=== PATIENT | female | born 1985 | race Caucasian/White ===

== ENCOUNTER 2016-09-15 14:59 | Emergency (ER) | payer MEDICAID ==
[~2016-09-15 14:59] MED LIST: PREN1CAP12 PO
[2016-09-15 15:19] VITALS: BP 101/67; PULSE 90
[2016-09-15 15:25] VITALS: PULSE 93
--- NOTE | 2016-09-15 15:28 | PD ---
HPI Chief Complaint Cramping Date Seen: Sep 15, 2016 Time Seen: 15:16 (Randal Arce MD R1) Travel History International Travel<30 Days: No Contact w/Intl Traveler<30Days: No Known Affected Area: No (Randal Arce MD R1) History of Present Illness HPI 31 y/o at 24/3 weeks presents for cramping. States she got in an argument with family this afternoon and was stressed out. Also developed palpitations. Denies any trauma. Denies vaginal bleeding, discharge, contractions. Endorses movement. No problems with this . Denies any other symptoms. Denies headache, changes in vision, edema. Denies chest pain, SOB, dysuria. Follows with Nuha Walton. Did have sexual intercourse this morning. Para: 6 : 8 Miscarriage: 1 (Randal Arce MD R1) History Past Medical History Medical History: Denies Significant Hx (Randal Arce MD) Obstetric History Obstetric History (Randal Arce MD) Past Surgical History Surgical History: No Previous Surgery (Randal Arce MD) Family History Family History: Negative (Randal Arce MD) Social History Alcohol Use: No Tobacco Use: Yes (6-10 cigs/day) Substance Abuse: No (Randal Arce MD R1) Allergies-Medications (Allergen,Severity, Reaction): Coded Allergies: No Known Allergies (Verified , 02/09/16) Home Meds Active Scripts W/O A W/ Fe Asparto G (Prenate Dha 18-0.6-0.4-300 mg)1 Cap Cap1 Tab PO DAILY #30 BOTTLE Ref 11 Prov:Aliza De 09/14/16 Review of Systems General / Constitutional: Weight Gain, No: Fever, Weight Loss, Chills Eyes: No: Blurred Vision, Visual changes HENT: No: Headaches, Vertigo Cardiovascular: Palpitations, No: Chest Pain or Discomfort, Tachycardia, Syncope Respiratory: No: Cough, Short of Breath Gastrointestinal: No: Nausea, Vomiting, Diarrhea, Abdominal Pain, Constipation Genitourinary: No: Urgency, Frequency, Dysuria, Discharge, Vaginal Bleeding Musculoskeletal: Cramping, No: Limited ROM, Weakness, Edema Skin: No Rash, No Itching Neurologic: No: Weakness, Dizziness Psychiatric: No: Anxiety, Depression Endocrine: No: Heat Intolerance, Cold Intolerance Hematologic/Lymphatic: No Easy Bruising, No Lymph Node Enlargement (Randal Arce MD R1) Physical Exam Narrative GENERAL: Well-nourished, well-developed patient. SKIN: Warm and dry. HEAD: Normocephalic and atraumatic. EYES: No scleral icterus. No injection or drainage. ENT: No nasal drainage noted. Mucous membranes pink. Airway patent. NECK: Supple, trachea midline. No JVD. CARDIOVASCULAR: Regular rate and rhythm without murmurs, gallops, or rubs. RESPIRATORY: Breath sounds equal bilaterally. No accessory muscle use. ABDOMEN/GI: Abdomen soft, non-tender, bowel sounds present, no rebound, no guarding Gravid to 24 weeks size Fundal Height: 24 GENITOURINARY: External Genitalia: intact and normal in appearance Cervix: closed Dilatation: 0 Effacement: 0 Station: -3 Membranes: intact Uterine Contractions: none FHT's: Category: 1 Baseline: 145 Reactive: yes Variability: moderate Decels: none EXTREMITIES: No cyanosis or edema. BACK: Nontender without obvious deformity. No CVA tenderness. NEUROLOGICAL: Awake and alert. Motor and sensory grossly within normal limits. Five out of 5 muscle strength in all muscle groups. Normal speech. (Randal Arce MD R1) Data Data Vital Signs Reviewed: Yes (Randal Arce MD R1) [facility] Medical Record Reviewed: Yes Interpretation(s) 31 y/o at 24/3 weeks presents for cramping. - Monitor heart tracing - Unable to perform fibronectin due to sexual intercourse this morning - Cervical check - Monitor vitals Narrative Course / MDM monitor reassuring. No contractions. Category 1 tracing Cervical check: Cervix closed, thick, high. Discharge in stable condition. Return to ED if worsening symptoms (Randal Arce MD R1) Attending Attestation Patient seen and evaluated with resident under direct supervision, agree with assessment and plan. (Madhav Villar MD) Diagnosis Diagnosis: Primary Impression: Qualified Code: Z3A.24 - 24 weeks gestation of Disposition: DISCHARGE HOME Condition: Stable Randal Arce MD R1 Sep 15, 2016 15:28 Madhav Villar MD Sep 15, 2016 17:16
[2016-09-15 15:30] VITALS: PULSE 91; RESP 18; TEMP 98.3
[2016-09-15 15:35] VITALS: PULSE 90
[2016-11-01] MEDS ORDERED: LACTATED RINGER'S 1000 ML INJ 1,000 ML IV SCH (10:14)
== END 2016-09-15 16:18 | disposition home or self-care (01) ==
LOC: HOBED 14:59
DX: O26.92 Pregnancy related conditions, unspecified, second trimester (principal); Z3A.24 24 weeks gestation of pregnancy; Z72.0 Tobacco use
CPT/HCPCS: 99283

== ENCOUNTER 2016-11-01 09:59 | Emergency (ER) | payer MEDICAID ==
[2016-11-01 10:25] VITALS: PULSE 95
[2016-11-01] MEDS ORDERED: LACTATED RINGER'S 1000 ML INJ 1,000 ML IV SCH (10:25)
[2016-11-01 10:30] VITALS: TEMP 98.4
[2016-11-01] MEDS ORDERED: ONDANSETRON HCL 4 MG/2 ML VIAL IV ONE (10:30)
--- NOTE | 2016-11-01 10:45 | PD ---
HPI Chief Complaint Nausea, vomiting, stress Date Seen: Nov 01, 2016 Travel History International Travel<30 Days: No Contact w/Intl Traveler<30Days: No Known Affected Area: No History of Present Illness HPI Patient is a 31-year-old 016 at and 1/7 weeks today who presents with nausea, vomiting, and increased stress for 1 week. She states she is only been able to keep down crackers intermittently as well as water over the last week. She denies any fevers or chills but does report sporadic cramping of the lower abdomen yesterday. Her last known weight was 147 pounds approximately one month ago. She is stressed regarding custody dispute of her 2-year-old daughter, which has been a chronic issue. However, she states the anxiety symptoms have acutely worsened in the last day and she workup with significant anxiety, though she cannot symptoms. [facility]. She states that all her labs were normal but she has not had her glucose test. She denies leakage of fluid, vaginal bleeding, contractions, and feels baby moving actively. She denies PORRAS/N/V/D/fever/sick contacts/SOB/calf pain/dizziness/seeing spots. Allergies-Medications (Allergen,Severity, Reaction): Coded Allergies: No Known Allergies (Verified , 02/09/16) Home Meds Active Scripts W/O A W/ Fe Asparto G (Prenate Dha 18-0.6-0.4-300 mg)1 Cap Cap1 Tab PO DAILY #30 BOTTLE Ref 11 Prov:Aliza De 09/14/16 Physical Exam Narrative Weight today = 141 lb GENERAL: Well-nourished, well-developed female in NAD. SKIN: Warm and dry. No rashes. HEAD: Normocephalic and atraumatic. EYES: No scleral icterus. No injection or drainage. Pupils 3mm in size, normal. ENT: No nasal drainage noted. Mucous membranes pink. Airway patent. NECK: Supple, trachea midline. No JVD. CARDIOVASCULAR: Regular rate and rhythm without murmurs, gallops, or rubs. RESPIRATORY: Breath sounds equal bilaterally. No accessory muscle use. ABDOMEN/GI: Abdomen soft, non-tender, bowel sounds present, no rebound, no guarding. Fundal high above umbilicus. GENITOURINARY: External Genitalia: intact and normal in appearance Cervix: Closed, thick, high Dilatation: Closed Effacement 50% Station: High Presentation: Vertex, ballotable Membranes: Intact Uterine Contractions: None Bedside ultrasound: Vertex presentation, BPD 7.97 cm consistent with 32 week gestation, EMILEE 10.22. Grade 2 placenta audrey-fundal, BPP 10/10, FHR 144. FHT's: Category: 1 Baseline: 140 Reactive: y, max HR 170 over a 3 min accel Variability:mod Decels: absent EXTREMITIES: No cyanosis or edema. 2+ pulses in UE and LE bilaterally. BACK: Nontender without obvious deformity. No CVA tenderness. NEUROLOGICAL: Awake and alert. Anxious. Motor and sensory grossly within normal limits. Five out of 5 muscle strength in all muscle groups. Normal speech. Data Data Vital Signs Reviewed: Yes Orders Vital Signs (Adult) .ON ADMISSION (11/01/16 10:25) ^ Labor Status (11/01/16 10:25) Urinalysis - C+S If Indicated (11/01/16 10:25) ^ Hydration (11/01/16 10:25) Cbc No Diff, Includes Plts (11/01/16 10:25) Comprehensive Metabolic Panel (11/01/16 10:25) Lactated Ringer's 1000 Ml Inj (Lr 1000 M (11/01/16 10:25) Ondansetron Inj (Zofran Inj) (11/01/16 10:30) Ob/Psych Drug Screen, Urine (11/01/16 10:25) MDM Medical Record Reviewed: Yes Plan 31-year-old at 37 and 1/7 weeks EDC 11/21/16, who presents to the ED with nausea and vomiting and anxiety. Nausea and vomiting of /anxiety Category 1 strip No contractions on monitor Bedside ultrasound reassuring Cervical exam: closed, posterior, high, vertex presentation Weight loss 6 lb in one month - recommend PRN anti-emetic Differential diagnoses includes infection, dehydration, hyperemesis gravidarum Last known weight 147 pounds, we will recheck weight today CBC, CMP, UA, UDS ordered -positive for marijuana, is within normal limits. Some rest of UDS still pending. We'll breastfeeding peer counselor and marijuana use. She will be discharged home with Rx for Zofran to be used as needed. Follow up with [facility]. fluid bolus of LR, encourage PO hydration Hydration PO Case management consulted Seen and discussed with Dr. Carranza Diagnosis Diagnosis: Primary Impression: 31 weeks gestation of Additional Impression: Nausea and vomiting of , antepartum Disposition: 01 DISCHARGE HOME Condition: Stable Scripts Ondansetron (Zofran)4 Mg Tab4 Mg PO Q6HR PRN (NAUSEA OR VOMITING) #7 TAB Ref 0 Prov:Lela Bo MD R1 11/01/16 Lela Bo MD R1 Nov 01, 2016 10:45
[2016-11-01 11:14] LABS: BACTERIA, URINE OCC /hpf; BLOOD, URINE NEG (NEG); COMMENT (UR) CULT NOT INDICATED; CULTURE IF INDICATED CULT NOT INDICATED; GLUCOSE,URINE NEG (NEG); KETONE, URINE 150 mg/dL (NEG); MUCUS URINE FEW /lpf (OCC); NITRITE,URINE NEG (NEG); SQUAMOUS EPITHELIAL CELL URINE <1 /hpf (0-5); TRANSITIONAL EPI CELLS, URINE <1 /hpf; URINE COLOR YELLOW (YELLW/STRAW)
[2016-11-01 11:29] LABS: AMPHETAMINE, URINE NEG (NEG); BARBITURATES, URINE NEG (NEG); COCAINE, URINE NEG (NEG)
[2016-11-01 11:29] LABS: HEMATOCRIT 31.6 % (35.0-46.0); MEAN CELL VOLUME 85.7 FL (80.0-100.0); MEAN CORPUSCULAR HEMOGLOBIN 29.5 PG (27.0-34.0); MEAN CORPUSCULAR HGB CONC 34.4 % (32.0-36.0); PLATELET COUNT 207 TH/MM3 (150-450); RED BLOOD COUNT 3.69 MIL/MM3 (4.00-5.30); RED CELL DISTRIBUTION WIDTH 12.9 % (11.6-17.2); REVIEW FLAG FINAL; WHITE BLOOD COUNT 10.8 TH/MM3 (4.0-11.0)
[2016-11-01 11:56] LABS: ANION GAP 9 MEQ/L (5-15); AST (GOT) 12 U/L (15-37); BICARBONATE 24.4 MEQ/L (21.0-32.0); BLOOD UREA NITROGEN 5 MG/DL (7-18); CHLORIDE 108 MEQ/L (98-107); GLOMERULAR FILTRATION RATE 123 ML/MIN (>89); POTASSIUM 3.7 MEQ/L (3.5-5.1); SODIUM (NA) 141 MEQ/L (136-145)
[2016-11-01 11:59] LABS: ALKALINE PHOSPHATASE 73 U/L (45-117); ALT (GPT) 10 U/L (10-53); TOTAL BILIRUBIN ADULT 0.3 MG/DL (0.2-1.0)
[2016-11-01] MEDS ORDERED: ZOFR4TAB PO (12:06)
[2016-11-06 08:04] LABS: BATH SALTS (MDPV) UR NEG (NEG); ECSTASY (MDMA) UR NEG (NEG); HEROIN (6-ACETYLMORPHINE) UR NEG (NEG); K2 SPICE UR NEG (NEG); OBMETHADONE UR NEG (NEG); OXYCODONE (PERCODAN) NEG (NEG); PHENCYCLIDINE URINE NEG (NEG)
== END 2016-11-01 12:14 | disposition home or self-care (01) ==
LOC: HOBED 09:59
DX: O26.893 Other specified pregnancy related conditions, third trimester (principal); O21.9 Vomiting of pregnancy, unspecified; Z3A.31 31 weeks gestation of pregnancy
CPT/HCPCS: 76815; 80053; 80307; 81001; 85027; 96374; 99284; G0481; J2405; J7120

== ENCOUNTER 2016-12-18 15:07 | Inpatient (IN) | payer MEDICAID ==
[2016-12-18] VITALS (46 sets, daily range): BP systolic 89–126; BP diastolic 44–79; PULSE 68–110; RESP 17–20; TEMP 97.8–98.4; O2SAT 100
[2016-12-18] MEDS ORDERED: LACTATED RINGER'S 1000 ML INJ 1,000 ML IV PRN (15:39)
[2016-12-18] MEDS ORDERED: SODIUM CHLORID 0.9% 500 ML INJ 500 ML IV PRN (15:45)
[2016-12-18] MEDS ORDERED: MINERAL OIL 10 ML VIAL TOPICAL PRN (15:45)
[2016-12-18] MEDS ORDERED: CITRIC ACID-SODIUM CITRATE LIQ 30 ML UDC PO SCH (15:45)
[2016-12-18] MEDS ORDERED: LIDOCAINE HCL 1% 50 ML VIAL INFIL PRN (15:45)
[2016-12-18] MEDS ORDERED: OXYTOCIN 30 UNITS-500ML PREMIX 500 ML IV ONE (15:45)
[2016-12-18] MEDS ORDERED: LIDOCAINE HCL 1% 50 ML VIAL I-DERMAL PRN (15:45)
--- NOTE | 2016-12-18 15:53 | PD ---
HPI Chief Complaint contractions Date Seen: Dec 18, 2016 Travel History International Travel<30 Days: No Contact w/Intl Traveler<30Days: No History of Present Illness HPI Ms. Macdonald is a 31 yo (most recently in 12/2015 preceded by CS for breech presentation in 2013; prior deliveries were vaginal) patient of [facility] at 37 6/7 weeks who presents with complaint of contractions. Patient reports that contractions began becoming regular, q3-4min, and painful for the past hour. patient denies vaginal bleeding or loss of fluid. Patient reports normal movement. Patient reports mild, diffuse headache today in association with mild upper abdominal pain. Patient does not report vision changes, shortness of breath, chest pain, leg swelling, vaginal discharge, or other symptoms at this time. Patient reports smoking 1/2 PPD during . Patient states she is GBS + but denies other complications. Per review of EMR, labs unremarkable. GBS+ confirmed. Cannabinoids+ on multiple prior UDS. Para: 6 : 8 History Past Medical History Medical History: Denies Significant Hx Obstetric History Obstetric History G8G6 Vaginal delivery in 12/2015 CS in 2013 Prior 4 deliveries vaginal Past Surgical History Narrative Surgical CS x1 in 2013 Laparoscopy as adolescent Family History Family History: Negative Social History Alcohol Use: No Tobacco Use: Yes Substance Abuse: No Allergies-Medications (Allergen,Severity, Reaction): Coded Allergies: No Known Allergies (Verified , 12/14/16) Home Meds Active Scripts W/O A W/ Fe Asparto G (Prenate Dha 18-0.6-0.4-300 mg)1 Cap Cap1 Tab PO DAILY #30 BOTTLE Ref 11 Prov:Aliza De 09/14/16 Review of Systems General / Constitutional: No: Fever, Chills HENT: Headaches (mild, bilateral) Cardiovascular: No: Chest Pain or Discomfort Respiratory: No: Short of Breath Gastrointestinal: Abdominal Pain (w/ contractions), No: Nausea, Vomiting Genitourinary: No: Urgency, Dysuria Physical Exam BP 93/71 Narrative GENERAL: Well-nourished, well-developed patient. SKIN: Warm and dry. HEAD: Normocephalic and atraumatic. EYES: No scleral icterus. No injection or drainage. ENT: No nasal drainage noted. Mucous membranes pink. Airway patent. NECK: Supple, trachea midline. No JVD. CARDIOVASCULAR: Regular rate and rhythm without murmurs. Normal perfusion RESPIRATORY: CTAB, normal rate ABDOMEN/GI: Abdomen soft, non-tender, bowel sounds present, no rebound, no guarding Gravid EXTREMITIES: No cyanosis or edema. NEUROLOGICAL: Awake and alert. Motor and sensory function grossly within normal limits. GENITOURINARY: External Genitalia: intact and normal in appearance Cervix: Dilatation: 5cm Effacement: 70% Station: -2 Presentation: V Membranes: Intact Uterine Contractions: q3-6 FHT's: Category: 1 Baseline: 125 Reactive: Y Variability: Mod Decels: None Data Data Orders Ob (2e) Additional Admit Info (12/18/16 15:29) Admit To Inpatient (12/18/16 ) Vital Signs (Adult) .Per protocol (12/18/16 15:39) Heart (12/18/16 15:39) Amnioinfusion (12/18/16 15:39) Urinary Catheter Management .ONCE (12/18/16 15:39) Diet Npo (12/18/16 Dinner) Lactated Ringer's 1000 Ml Inj (Lr 1000 M (12/18/16 15:39) Lactated Ringer's 1000 Ml Inj (Lr 1000 M (12/18/16 15:39) Sodium Chlorid 0.9% 500 Ml Inj (Ns 500 M (12/18/16 15:45) Sodium Chlor 0.9% 1000 Ml Inj (Ns 1000 M (12/18/16 15:59) Lidocaine 1% Inj (50 Ml) (Xylocaine 1% I (12/18/16 15:45) Citric Acid-Sodium Citrate Liq (Bicitra (12/18/16 15:45) Fentanyl Inj (Fentanyl Inj) (12/18/16 15:45) Fentanyl Inj (Fentanyl Inj) (12/18/16 15:45) Penicillin G Potassium Inj (Pfizerpen-G (12/18/16 15:45) Penicillin G Potassium Inj (Pfizerpen-G (12/18/16 19:45) Complete Blood Count With Diff (12/18/16 15:39) Hold Clot (12/18/16 15:39) Abo/Rh Blood Type (12/18/16 15:39) Urinalysis - C+S If Indicated (12/18/16 15:39) Type And Screen (12/18/16 15:39) Resp Oxygen Non Rebreathe Mask (12/18/16 ) ^ Epidural / Intrathecal Infus (12/18/16 15:39) Oxytocin 30 Units-500ml Premix (Pitocin (12/18/16 15:45) Lidocaine 1% Inj (50 Ml) (Xylocaine 1% I (12/18/16 15:45) Light Mineral Oil (Muri-Lube Oil) (12/18/16 15:45) Inpatient Certification (12/18/16 ) Specimen To Be Collected PRN (12/18/16 15:39) MDM Medical Record Reviewed: Yes Narrative Course / MDM 31 yo at 37 6/7 weeks who presents with complaint of contractions -Cervix /-2 -Cat 1 rhythm -Contractions q3-6min -prior CS in 2013, most recently in 2016; requests -GBS+ -Marijuana use per EMR Plan: -Will admit for labor -Continue EFM -Will start IVF -Will obtain CBC, UA, blood typing -Will start PCN for GBS + -Epidural if desired Omar Mejias MD R2 Dec 18, 2016 15:53
[2016-12-18] MEDS ORDERED: SODIUM CHLOR 0.9% 1000 ML INJ 1,000 ML IV PRN (15:59)
[2016-12-18] MEDS ORDERED: LACTATED RINGER'S 1000 ML INJ 1,000 ML IV SCH (16:00)
[2016-12-18] MEDS ORDERED: MEASLES, MUMPS, RUBELLA VACCINE 0.5 ML VIAL SQ ONE (16:00)
[2016-12-18] MEDS ORDERED: DIPHTH/TETANUS/ACEL PERTUSSIS (BOOSTER) 0.5 ML VIAL/PFS IM ONE (16:00)
[2016-12-18] MEDS ORDERED: PENICILLIN G POTASSIUM INJ 5,000,000 UNITS in SODIUM CHLORIDE 0.9% INJ 100 ML IV ONE (16:00)
--- NOTE | 2016-12-18 16:04 | HHI.HP ---
History & Physical H&P Leisa Burnette Unit Number: [id number] Date of : 1985 Patient Status: Admitted Inpatient Attending Doctor: Nikos Harding II, MD HPI HPI Chief Complaint contractions Date Seen: Dec 18, 2016 Travel History International Travel<30 Days: No Contact w/Intl Traveler<30Days: No History of Present Illness HPI Ms. Macdonald is a 31 yo (most recently in 12/2015 preceded by CS for breech presentation in 2013; prior deliveries were vaginal) patient of [facility] at 37 6/7 weeks who presents with complaint of contractions. Patient reports that contractions began becoming regular, q3-4min, and painful for the past hour. patient denies vaginal bleeding or loss of fluid. Patient reports normal movement. Patient reports mild, diffuse headache today. Patient does not report vision changes, shortness of breath, chest pain, leg swelling, vaginal discharge, or other symptoms at this time. Patient reports smoking 1/2 PPD during . Patient states she is GBS + but denies other complications. Para: 6 : 8 History (Limited) History Past Medical History Medical History: Denies Significant Hx Obstetric History Obstetric History G8G6 Vaginal delivery in 12/2015 CS in 2013 Prior 4 deliveries vaginal Past Surgical History Narrative Surgical CS x1 in 2013 Laparoscopy as adolescent Family History Family History: Negative Social History Alcohol Use: No Tobacco Use: Yes Substance Abuse: No Allergies-Medications Allergies-Medications (Allergen,Severity, Reaction): Coded Allergies: No Known Allergies (Verified , 12/14/16) Home Meds Active Scripts W/O A W/ Fe Asparto G (Prenate Dha 18-0.6-0.4-300 mg)1 Cap Cap1 Tab PO DAILY #30 BOTTLE Ref 11 Prov:Aliza De 09/14/16 ROS Review of Systems General / Constitutional: No: Fever, Chills HENT: Headaches (mild, bilateral) Cardiovascular: No: Chest Pain or Discomfort Respiratory: No: Short of Breath Gastrointestinal: Abdominal Pain (w/ contractions), No: Nausea, Vomiting Genitourinary: No: Urgency, Dysuria Physical Exam Physical Exam BP 93/71 Narrative GENERAL: Well-nourished, well-developed patient. SKIN: Warm and dry. HEAD: Normocephalic and atraumatic. EYES: No scleral icterus. No injection or drainage. ENT: No nasal drainage noted. Mucous membranes pink. Airway patent. NECK: Supple, trachea midline. No JVD. CARDIOVASCULAR: Regular rate and rhythm without murmurs. Normal perfusion RESPIRATORY: CTAB, normal rate ABDOMEN/GI: Abdomen soft, non-tender, bowel sounds present, no rebound, no guarding Gravid EXTREMITIES: No cyanosis or edema. NEUROLOGICAL: Awake and alert. Motor and sensory function grossly within normal limits. GENITOURINARY: External Genitalia: intact and normal in appearance Cervix: Dilatation: 5cm Effacement: 70% Station: -2 Presentation: V Membranes: Intact Uterine Contractions: q3-6 FHT's: Category: 1 Baseline: 125 Reactive: Y Variability: Mod Decels: None Data Data Data Orders Ob (2e) Additional Admit Info (12/18/16 15:29) Admit To Inpatient (12/18/16 ) Vital Signs (Adult) .Per protocol (12/18/16 15:39) Heart (12/18/16 15:39) Amnioinfusion (12/18/16 15:39) Urinary Catheter Management .ONCE (12/18/16 15:39) Diet Npo (12/18/16 Dinner) Lactated Ringer's 1000 Ml Inj (Lr 1000 M (12/18/16 15:39) Lactated Ringer's 1000 Ml Inj (Lr 1000 M (12/18/16 15:39) Sodium Chlorid 0.9% 500 Ml Inj (Ns 500 M (12/18/16 15:45) Sodium Chlor 0.9% 1000 Ml Inj (Ns 1000 M (12/18/16 15:59) Lidocaine 1% Inj (50 Ml) (Xylocaine 1% I (12/18/16 15:45) Citric Acid-Sodium Citrate Liq (Bicitra (12/18/16 15:45) Fentanyl Inj (Fentanyl Inj) (12/18/16 15:45) Fentanyl Inj (Fentanyl Inj) (12/18/16 15:45) Penicillin G Potassium Inj (Pfizerpen-G (12/18/16 15:45) Penicillin G Potassium Inj (Pfizerpen-G (12/18/16 19:45) Complete Blood Count With Diff (12/18/16 15:39) Hold Clot (12/18/16 15:39) Abo/Rh Blood Type (12/18/16 15:39) Urinalysis - C+S If Indicated (12/18/16 15:39) Type And Screen (12/18/16 15:39) Resp Oxygen Non Rebreathe Mask (12/18/16 ) ^ Epidural / Intrathecal Infus (12/18/16 15:39) Oxytocin 30 Units-500ml Premix (Pitocin (12/18/16 15:45) Lidocaine 1% Inj (50 Ml) (Xylocaine 1% I (12/18/16 15:45) Light Mineral Oil (Muri-Lube Oil) (12/18/16 15:45) Inpatient Certification (12/18/16 ) Specimen To Be Collected PRN (12/18/16 15:39) MDM MDM Imp-- Labor in pt Plan - allow , pt understands risks and benefits of Nikos Campos MD, II, MD Dec 18, 2016 16:04
[2016-12-18] MEDS ORDERED: fentaNYL 2MCG-BUPIV 0.125% INJ 100 ML ONE (16:05)
[2016-12-18 16:19] LABS: AUTOMATED NEUTROPHIL # 18.4 TH/MM3 (1.8-7.7); BASOPHIL # 0.1 TH/MM3 (0-0.2); BASOPHIL % 0.3 % (0.0-2.0); EOSINOPHIL % 0.1 % (0.0-4.0); HEMATOCRIT 32.5 % (35.0-46.0); HEMO FLAGS DIFF FINAL; LYMPH % 9.1 % (9.0-44.0); LYMPHOCYTE # 1.9 TH/MM3 (1.0-4.8); MEAN CORPUSCULAR HEMOGLOBIN 26.9 PG (27.0-34.0); MEAN CORPUSCULAR HGB CONC 32.4 % (32.0-36.0); MONO % 4.5 % (0.0-8.0); PLATELET COUNT 213 TH/MM3 (150-450); RED BLOOD COUNT 3.91 MIL/MM3 (4.00-5.30); RED CELL DISTRIBUTION WIDTH 13.2 % (11.6-17.2); WHITE BLOOD COUNT 21.3 TH/MM3 (4.0-11.0)
--- NOTE | 2016-12-18 16:20 | HHI.HP ---
History & Physical H&P HPI HPI Chief Complaint contractions Date Seen: Dec 18, 2016 Travel History International Travel<30 Days: No Contact w/Intl Traveler<30Days: No History of Present Illness HPI Ms. Macdonald is a 31 yo (most recently in 12/2015 preceded by CS for breech presentation in 2013; prior deliveries were vaginal) patient of [facility] at 37 6/7 weeks who presents with complaint of contractions. Patient reports that contractions began becoming regular, q3-4min, and painful for the past hour. patient denies vaginal bleeding or loss of fluid. Patient reports normal movement. Patient reports mild, diffuse headache today in association with mild upper abdominal pain. Patient does not report vision changes, shortness of breath, chest pain, leg swelling, vaginal discharge, or other symptoms at this time. Patient reports smoking 1/2 PPD during . Patient states she is GBS + but denies other complications. Per review of EMR, labs unremarkable. GBS+ confirmed. Cannabinoids+ on multiple prior UDS. Para: 6 : 8 History (Limited) History Past Medical History Medical History: Denies Significant Hx Obstetric History Obstetric History G8G6 Vaginal delivery in 12/2015 CS in 2013 Prior 4 deliveries vaginal Past Surgical History Narrative Surgical CS x1 in 2013 Laparoscopy as adolescent Family History Family History: Negative Social History Alcohol Use: No Tobacco Use: Yes Substance Abuse: No Allergies-Medications Allergies-Medications (Allergen,Severity, Reaction): Coded Allergies: No Known Allergies (Verified , 12/14/16) Home Meds Active Scripts W/O A W/ Fe Asparto G (Prenate Dha 18-0.6-0.4-300 mg)1 Cap Cap1 Tab PO DAILY #30 BOTTLE Ref 11 Prov:Aliza De 09/14/16 ROS Review of Systems General / Constitutional: No: Fever, Chills HENT: Headaches (mild, bilateral) Cardiovascular: No: Chest Pain or Discomfort Respiratory: No: Short of Breath Gastrointestinal: Abdominal Pain (w/ contractions), No: Nausea, Vomiting Genitourinary: No: Urgency, Dysuria Physical Exam Physical Exam BP 93/71 Narrative GENERAL: Well-nourished, well-developed patient. SKIN: Warm and dry. HEAD: Normocephalic and atraumatic. EYES: No scleral icterus. No injection or drainage. ENT: No nasal drainage noted. Mucous membranes pink. Airway patent. NECK: Supple, trachea midline. No JVD. CARDIOVASCULAR: Regular rate and rhythm without murmurs. Normal perfusion RESPIRATORY: CTAB, normal rate ABDOMEN/GI: Abdomen soft, non-tender, bowel sounds present, no rebound, no guarding Gravid EXTREMITIES: No cyanosis or edema. NEUROLOGICAL: Awake and alert. Motor and sensory function grossly within normal limits. GENITOURINARY: External Genitalia: intact and normal in appearance Cervix: Dilatation: 5cm Effacement: 70% Station: -2 Presentation: V Membranes: Intact Uterine Contractions: q3-6 FHT's: Category: 1 Baseline: 125 Reactive: Y Variability: Mod Decels: None Data Data Data Orders Ob (2e) Additional Admit Info (12/18/16 15:29) Admit To Inpatient (12/18/16 ) Vital Signs (Adult) .Per protocol (12/18/16 15:39) Heart (12/18/16 15:39) Amnioinfusion (12/18/16 15:39) Urinary Catheter Management .ONCE (12/18/16 15:39) Diet Npo (12/18/16 Dinner) Lactated Ringer's 1000 Ml Inj (Lr 1000 M (12/18/16 15:39) Lactated Ringer's 1000 Ml Inj (Lr 1000 M (12/18/16 15:39) Sodium Chlorid 0.9% 500 Ml Inj (Ns 500 M (12/18/16 15:45) Sodium Chlor 0.9% 1000 Ml Inj (Ns 1000 M (12/18/16 15:59) Lidocaine 1% Inj (50 Ml) (Xylocaine 1% I (12/18/16 15:45) Citric Acid-Sodium Citrate Liq (Bicitra (12/18/16 15:45) Fentanyl Inj (Fentanyl Inj) (12/18/16 15:45) Fentanyl Inj (Fentanyl Inj) (12/18/16 15:45) Penicillin G Potassium Inj (Pfizerpen-G (12/18/16 15:45) Penicillin G Potassium Inj (Pfizerpen-G (12/18/16 19:45) Complete Blood Count With Diff (12/18/16 15:39) Hold Clot (12/18/16 15:39) Abo/Rh Blood Type (12/18/16 15:39) Urinalysis - C+S If Indicated (12/18/16 15:39) Type And Screen (12/18/16 15:39) Resp Oxygen Non Rebreathe Mask (12/18/16 ) ^ Epidural / Intrathecal Infus (12/18/16 15:39) Oxytocin 30 Units-500ml Premix (Pitocin (12/18/16 15:45) Lidocaine 1% Inj (50 Ml) (Xylocaine 1% I (12/18/16 15:45) Light Mineral Oil (Muri-Lube Oil) (12/18/16 15:45) Inpatient Certification (12/18/16 ) Specimen To Be Collected PRN (12/18/16 15:39) MDM MDM Medical Record Reviewed: Yes Narrative Course / MDM 31 yo at 37 6/7 weeks who presents with complaint of contractions -Cervix 5/70/-2 -Cat 1 rhythm -Contractions q3-6min -prior CS in 2013, most recently in 2016; requests -GBS+ -Marijuana use per EMR Plan: -Will admit for labor -Continue EFM -Will start IVF -Will obtain CBC, UA, blood typing -Will start PCN for GBS + -Epidural if desired Omar Mejias MD R2 Dec 18, 2016 16:20
[2016-12-18 16:22] LABS: BLOOD, URINE NEG (NEG); COMMENT (UR) CULT NOT INDICATED; CULTURE IF INDICATED CULT NOT INDICATED; GLUCOSE,URINE NEG (NEG); KETONE, URINE 150 mg/dL (NEG); MUCUS URINE FEW /lpf (OCC); NITRITE,URINE NEG (NEG); SQUAMOUS EPITHELIAL CELL URINE 1 /hpf (0-5); URINE COLOR YELLOW (YELLW/STRAW)
[2016-12-18 16:27] LABS: AMPHETAMINE, URINE NEG (NEG); BARBITURATES, URINE NEG (NEG); COCAINE, URINE NEG (NEG)
[2016-12-18] MEDS ORDERED: ePHEDrine/NS 25 MG/5 ML SYR ONE (17:01)
--- NOTE | 2016-12-18 17:16 | PD.LABORPN ---
Subjective Subjective OB note SROM while palpating fundus , fluid clear and copious , cx 6/70/-1/vtx , FHR reactive , CTXs seen , epidural just placed and 1 st dose of IV PCN for GBS + given Objective Vital Signs Vital Signs Date Time Temp Pulse Resp B/P Pulse Ox O2 Delivery O2 Flow Rate FiO2 12/18/16 16:50 100 115/57 12/18/16 16:47 103 102/63 12/18/16 16:46 96 103/79 12/18/16 16:45 110 12/18/16 16:45 103 114/73 12/18/16 16:45 20 12/18/16 16:44 103 109/78 12/18/16 16:00 94 115/74 Objective Pelvic Exam: Cervix: [-] Dilatation: [6-] Effacement: [70-] Station: [-1] Presentation: [vtx-] Membranes: ruptured] Uterine Contractions: [reg-] FHT's: Category: [-1] Baseline: [-144] Reactive: [-yes] Variability: [mod-] Decels: [none-] Nikos Harding II, MD Dec 18, 2016 17:16
[2016-12-18] MEDS ORDERED: ONDANSETRON HCL 4 MG/2 ML VIAL IV PUSH PRN ×2 (18:15→18:30)
--- NOTE | 2016-12-18 19:15 | PD.LABORPN ---
Subjective Subjective Pt doing well. Feels like pushing Objective Vital Signs Vital Signs Date Time Temp Pulse Resp B/P Pulse Ox O2 Delivery O2 Flow Rate FiO2 12/18/16 19:00 17 12/18/16 18:55 88 17 18:50 85 17 18:45 88 17 18:45 87 114/66 17 18:30 17 17 18:25 84 17 18:20 83 17 18:15 18 12/18/16 18:15 82 97/64 17 18:15 89 12/18/16 18:10 90 12/18/16 18:05 96 12/18/16 18:00 86 12/18/16 18:00 97 111/68 12/18/16 17:55 97 12/18/16 17:45 82 12/18/16 17:45 92 110/58 17 17:40 97 12/18/16 17:35 99 17 17:30 78 12/18/16 17:30 105 110/62 17 17:25 103 108/59 17 17:25 79 17 17:24 17 12/18/16 17:22 97.8 12/18/16 17:20 82 12/18/16 17:20 95 107/73 17 17:15 72 12/18/16 17:15 100 107/63 17 17:11 88 103/57 17 17:10 100 99/44 17 17:10 94 17 17:05 91 17 17:05 101 109/48 17 17:01 91 109/54 17 17:00 17 17 17:00 99 89/67 17 17:00 104 17 16:55 96 107/54 17 16:55 76 17 16:50 100 115/57 17 16:47 103 102/63 1717 16:46 96 103/79 1717 16:45 110 17 16:45 103 114/73 12/18/16 16:45 20 12/18/16 16:44 103 109/78 12/18/16 16:00 94 115/74 Objective Pelvic Exam: Cervix: Midposition Dilatation: 8cm Effacement: 90% Station: +1 Presentation: Vertex Membranes: ruptured Uterine Contractions: Q3 min FHT's: Category: II Baseline: 120 Reactive: Up to 150 Variability: Moderate Decels: Variable Assessment/Plan Assessment and Plan 31 yo at 37 6/7 weeks in active labor -Cervix 8/+1 -Cat II rhythm, variable decels -Contractions q3min -prior CS in 2014, most recently in 2016; requests -GBS+ -Marijuana use per EMR Plan: -Continue routine antepartum care -Continue EFM -Continue PCN -Expect vaginal delivery Lexii Oh MD R1 Dec 18, 2016 19:15
[2016-12-18] MEDS ORDERED: NO SYSTEM NARCOTICS PRN (20:00)
[2016-12-18] MEDS ORDERED: PENICILLIN G POTASSIUM INJ 2,500,000 UNITS in SODIUM CHLORIDE 0.9% INJ 100 ML IV SCH (20:00)
[2016-12-18] MEDS ORDERED: fentaNYL 2MCG-BUPIV 0.125% 100 ML EPIDURAL SCH (20:00)
[2016-12-18] MEDS ORDERED: DO NOT ADMINISTER ANTICOAGULANTS PRN (20:00)
--- NOTE | 2016-12-18 20:12 | PD.LABORPN ---
Subjective Subjective OB attending note OB attending supervising vaginal after delivery of this multiparous patient with vaginal delivery over intact perineum of a 3285 g female 9 and 9, cord blood obtained placenta delivered spontaneously and on inspection of the placenta appeared may be a 6 cm chunk cotyledon was missing and therefore I scrubbed into the case and digitally palpated the internal uterine surface is best that I could cannot feel retained products or retained placental mass, uterus is very firm as the Pitocin had been started immediately after delivery of the baby. There are no lacerations bleeding minimal at the end of the delivery which was done by the family medicine machine learning intern who did a very good job. Mother and baby doing well Objective Vital Signs Vital Signs Date Time Temp Pulse Resp B/P Pulse Ox O2 Delivery O2 Flow Rate FiO2 12/18/16 20:02 88 109/60 12/18/16 20:02 18 12/18/16 20:01 98.4 84 116/66 12/18/16 19:25 87 12/18/16 19:15 103/55 12/18/16 19:11 98.3 12/18/16 19:11 18 12/18/16 19:05 87 100 12/18/16 19:00 106/63 12/18/16 19:00 17 12/18/16 18:55 88 12/18/16 18:50 85 12/18/16 18:45 88 12/18/16 18:45 87 114/66 12/18/16 18:30 17 12/18/16 18:25 84 12/18/16 18:20 83 12/18/16 18:15 18 12/18/16 18:15 82 97/64 12/18/16 18:15 89 12/18/16 18:10 90 12/18/16 18:05 96 12/18/16 18:00 86 12/18/16 18:00 97 111/68 12/18/16 17:55 97 12/18/16 17:45 82 12/18/16 17:45 92 110/58 12/18/16 17:40 97 12/18/16 17:35 99 12/18/16 17:30 78 12/18/16 17:30 105 110/62 12/18/16 17:25 103 108/59 12/18/16 17:25 79 12/18/16 17:24 17 4/17/17 17:22 97.8 12/18/16 17:20 82 12/18/16 17:20 95 107/73 12/18/16 17:15 72 12/18/16 17:15 100 107/63 12/18/16 17:11 88 103/57 12/18/16 17:10 100 99/44 12/18/16 17:10 94 12/18/16 17:05 91 12/18/16 17:05 101 109/48 12/18/16 17:01 91 109/54 12/18/16 17:00 17 12/18/16 17:00 99 89/67 12/18/16 17:00 104 12/18/16 16:55 96 107/54 12/18/16 16:55 76 12/18/16 16:50 100 115/57 12/18/16 16:47 103 102/63 12/18/16 16:46 96 103/79 12/18/16 16:45 110 12/18/16 16:45 103 114/73 12/18/16 16:45 20 12/18/16 16:44 103 109/78 12/18/16 16:00 94 115/74 Objective Assessment/Plan Assessment and Plan delivery without complication, plan routine care Nikos Harding II, MD Dec 18, 2016 20:12
--- NOTE | 2016-12-18 20:14 | PD.OB.DELI ---
Delivery Date: Dec 18, 2016 Anesthesia: Epidural Episiotomy: None Vaginal Delivery: Normal Presentation: Occiput anterior Nuchal Cord: None Delayed cord clamping (45 sec): Yes Infant: Female One Minute : 9 Five Minute : 9 Weight: 3285g Placenta: Spontaneous delivery, Intact, 3 vessel cord Laceration: No lacerations Additional Information Normal vaginal delivery. . Performed by Dr. Oh. Supervised by Dr. Harding. Adherent placenta appeared to have a missing piece. Dr. Harding checked her uterus and there were no missing pieces. Lexii Oh MD R1 Dec 18, 2016 20:14
[2016-12-18] MEDS ORDERED: BENZOCAINE 20% TOPICAL SPRAY 60 ML CAN TOPICAL PRN (20:15)
[2016-12-18] MEDS ORDERED: DOCUSATE SODIUM 50 MG/SENNA 8.6 MG TAB PO PRN (20:15)
[2016-12-18] MEDS ORDERED: ALUMINUM/MAGNESIUM/SIMETH 30 ML CUP PO PRN (20:15)
[2016-12-18] MEDS ORDERED: SODIUM CHLORIDE 0.9% FLUSH 10 ML FLUSH IV FLUSH PRN (20:15)
[2016-12-18] MEDS ORDERED: ZOLPIDEM TARTRATE 5 MG TAB PO PRN (20:15)
[2016-12-18] MEDS ORDERED: WITCH HAZEL 50%/GLYCERIN 12.5% 40 PAD JAR TOPICAL PRN (20:15)
[2016-12-18] MEDS ORDERED: ONDANSETRON ODT 4 MG TAB PO PRN (20:15)
[2016-12-18] MEDS ORDERED: ACETAMINOPHEN 325 MG TAB PO PRN (20:15)
[2016-12-18] MEDS ORDERED: SODIUM CHLORIDE 0.9% FLUSH 10 ML FLUSH IV FLUSH SCH (21:00)
[2016-12-18] MEDS ORDERED: ePHEDrine/NS 25 MG/5 ML SYR IV PRN (23:00)
[2016-12-19] MEDS: IBUPROFEN 600 MG TAB PO PRN ×3 (02:16→17:50)
[2016-12-19] MEDS: oxyCODONE/ACETAMINOPHEN 5 MG/325 MG TAB PO PRN ×4 (04:14→17:50)
--- NOTE | 2016-12-19 07:27 | HHI.OB ---
Subjective Post Day: 1 Remarks day #1. AFVSS overnight. Pain intense but controlled with medication. Decreased lochia - slightly more than a period. Denies dysuria. She is feeding the baby via formula. Appetite good. No nausea or vomiting. Ambulating well. Denies calf pain, shortness of breath, or cough. Otherwise, she is doing well this morning and has no other complaints. Objective Vitals/I&O Vital Signs Date Time Temp Pulse Resp B/P Pulse Ox O2 Delivery O2 Flow Rate FiO2 12/18/16 22:45 97.9 12/18/16 22:45 68 18 100/62 12/18/16 21:15 98.3 18 12/18/16 21:15 86 113/72 12/18/16 21:01 77 114/67 12/18/16 21:00 18 12/18/16 20:45 79 126/64 12/18/16 20:45 18 12/18/16 20:30 77 116/57 12/18/16 20:30 18 12/18/16 20:16 78 12/18/16 20:16 111/60 12/18/16 20:02 88 109/60 12/18/16 20:02 88 109/60 12/18/16 20:02 18 12/18/16 20:01 98.4 84 116/66 12/18/16 19:25 87 12/18/16 19:15 103/55 12/18/16 19:11 98.3 12/18/16 19:11 18 12/18/16 19:05 87 100 12/18/16 19:00 106/63 12/18/16 19:00 17 12/18/16 18:55 88 12/18/16 18:50 85 12/18/16 18:45 88 12/18/16 18:45 87 114/66 12/18/16 18:30 17 12/18/16 18:25 84 12/18/16 18:20 83 12/18/16 18:15 18 12/18/16 18:15 82 97/64 12/18/16 18:15 89 12/18/16 18:10 90 12/18/16 18:05 96 12/18/16 18:00 86 12/18/16 18:00 97 111/68 12/18/16 17:55 97 12/18/16 17:45 82 12/18/16 17:45 92 110/58 12/18/16 17:40 97 12/18/16 17:35 99 12/18/16 17:30 78 12/18/16 17:30 105 110/62 12/18/16 17:25 103 108/59 12/18/16 17:25 79 12/18/16 17:24 17 12/18/16 17:22 97.8 12/18/16 17:20 82 12/18/16 17:20 95 107/73 12/18/16 17:15 72 12/18/16 17:15 100 107/63 12/18/16 17:11 88 103/57 12/18/16 17:10 100 99/44 12/18/16 17:10 94 12/18/16 17:05 91 12/18/16 17:05 101 109/48 12/18/16 17:01 91 109/54 12/18/16 17:00 17 12/18/16 17:00 99 89/67 12/18/16 17:00 104 12/18/16 16:55 96 107/54 12/18/16 16:55 76 12/18/16 16:50 100 115/57 12/18/16 16:47 103 102/63 12/18/16 16:46 96 103/79 12/18/16 16:45 110 12/18/16 16:45 103 114/73 12/18/16 16:45 20 12/18/16 16:44 103 109/78 12/18/16 16:00 94 115/74 Objective Remarks GENERAL: Well-nourished, well-developed patient. CARDIOVASCULAR: Regular rate and rhythm without murmurs, gallops, or rubs. RESPIRATORY: Breath sounds equal bilaterally. No accessory muscle use. ABDOMEN/GI: Abdomen soft, non-tender. Fundus: Firm, mildly tender at umbilicus. GENITOURINARY: Light to moderate bleeding. EXTREMITIES: No cyanosis or edema, non-tender, without signs of DVT. Medications and IVs Current Medications Medications (Trade) Dose Ordered Sig/Che Route Start Time Stop Time Status Last Admin (Zofran Inj) 4 mg Q6HR PRN IV PUSH 12/18/16 18:30 (NS Flush) 2 ml BID IV FLUSH 12/18/16 21:00 (NS Flush) 2 ml UNSCH PRN IV FLUSH 12/18/16 20:15 (Tylenol) 650 mg Q4H PRN PO 12/18/16 20:15 (Motrin) 600 mg Q6H PRN PO 12/18/16 20:15 12/19/16 02:16 (Percocet 5-325 Mg) 1 tab Q4H PRN PO 12/18/16 20:15 (Percocet 5-325 Mg) 2 tab Q4H PRN PO 12/18/16 20:15 12/19/16 04:14 (Americaine 20% Top Spr) 1 spray Q4H PRN TOPICAL 12/18/16 20:15 12/19/16 02:16 (Tucks Pads) 1 applic QID PRN TOPICAL 12/18/16 20:15 12/19/16 02:16 (Makenzie-Colace) 2 tab Q12H PRN PO 12/18/16 20:15 (Ambien) 5 mg HS PRN PO 12/18/16 20:15 (Mag-Al Plus Susp Liq) 15 ml Q8H PRN PO 12/18/16 20:15 (Zofran Odt) 4 mg Q6H PRN PO 12/18/16 20:15 Miscellaneous Information No systemic narcotics to be given except... UNSCH PRN .XX 12/18/16 20:00 12/19/16 19:59 Miscellaneous Information DO NOT ADMINISTER ANY ANTICOAGUL... UNSCH PRN .XX 12/18/16 20:00 12/19/16 19:59 (fentaNYL 2MCG-BUPIV 0.125% INJ) 100 ml @ 0 mls/hr TITRATE EPIDURAL 12/18/16 20:00 (ePHEDrine/NS 25 MG/5 ML SYR) 10 mg UNSCH PRN IV 12/18/16 23:00 12/19/16 22:59 Assessment/Plan Assessment and Plan 31y/o female who is PPD#1 s/p -Continue routine care -Motrin and Percocet PRN for pain -Pericolase PRN for constipation -Encouraged OOB. Advised pelvic rest for 6 wks -Will need a follow-up appointment within 6 wks -Re: ctrl - patient is opting for tubal ligation Discussed with Dr. Harding Discharge Planning Anticipate discharge in 1-2 days Lexii Oh MD R1 Dec 19, 2016 07:27
[2016-12-19 15:59] VITALS: BP 100/60; PULSE 57; RESP 17; TEMP 97.3
[2016-12-19 16:00] VITALS: RESP 16
[2016-12-20] MEDS: IBUPROFEN 600 MG TAB PO PRN (01:18)
[2016-12-20] MEDS: oxyCODONE/ACETAMINOPHEN 5 MG/325 MG TAB PO PRN (01:18)
--- NOTE | 2016-12-20 07:18 | HHI.OB ---
Subjective Post Day: 2 Remarks day #2. AFVSS overnight. Pain intense but controlled with medication. Decreased lochia - about a period. Denies dysuria. She is feeding the baby via formula. Appetite good. No nausea or vomiting. Ambulating well. Denies calf pain, shortness of breath, or cough. Otherwise, she is doing well this morning and has no other complaints. (Eko,Lexii U R1 ) Objective Vitals/I&O Vital Signs Date Time Temp Pulse Resp B/P Pulse Ox O2 Delivery O2 Flow Rate FiO2 12/19/16 16:00 16 12/19/16 15:59 97.3 57 17 100/60 Objective Remarks GENERAL: Well-nourished, well-developed patient. CARDIOVASCULAR: Regular rate and rhythm without murmurs, gallops, or rubs. RESPIRATORY: Breath sounds equal bilaterally. No accessory muscle use. ABDOMEN/GI: Abdomen soft, non-tender. Fundus: Firm, mildly tender below umbilicus. GENITOURINARY: Light to moderate bleeding. EXTREMITIES: No cyanosis or edema, non-tender, without signs of DVT. Medications and IVs Current Medications Medications (Trade) Dose Ordered Sig/Che Route Start Time Stop Time Status Last Admin (Zofran Inj) 4 mg Q6HR PRN IV PUSH 12/18/16 18:30 (NS Flush) 2 ml BID IV FLUSH 12/18/16 21:00 (NS Flush) 2 ml UNSCH PRN IV FLUSH 12/18/16 20:15 (Tylenol) 650 mg Q4H PRN PO 12/18/16 20:15 (Motrin) 600 mg Q6H PRN PO 12/18/16 20:15 12/20/16 01:18 (Percocet 5-325 Mg) 1 tab Q4H PRN PO 12/18/16 20:15 12/20/16 01:18 (Percocet 5-325 Mg) 2 tab Q4H PRN PO 12/18/16 20:15 12/19/16 17:50 (Americaine 20% Top Spr) 1 spray Q4H PRN TOPICAL 12/18/16 20:15 12/19/16 02:16 (Tucks Pads) 1 applic QID PRN TOPICAL 12/18/16 20:15 12/19/16 02:16 (Makenzie-Colace) 2 tab Q12H PRN PO 12/18/16 20:15 12/19/16 21:15 (Ambien) 5 mg HS PRN PO 12/18/16 20:15 (Mag-Al Plus Susp Liq) 15 ml Q8H PRN PO 12/18/16 20:15 Ondansetron HCl 4 mg 4 mg Q6H PRN PO 12/18/16 20:15 (fentaNYL 2MCG-BUPIV 0.125% INJ) 100 ml @ 0 mls/hr TITRATE EPIDURAL 12/18/16 20:00 (Lexii Oh MD R1) Assessment/Plan Assessment and Plan 31y/o female who is PPD#2 s/p -Continue routine care -Motrin and Percocet PRN for pain -Pericolase PRN for constipation -Encouraged OOB. Advised pelvic rest for 6 wks -Will need a follow-up appointment within 6 wks -Re: ctrl - patient is opting for tubal ligation Discussed with Dr. Khan Discharge Planning Anticipate discharge today (Lexii Oh MD R1) Collaborating MD Comments Patient seen and care discussed with resident. (Shyann Khan MD) Lexii Oh MD R1 Dec 20, 2016 07:18 Shyann Khan MD Dec 22, 2016 18:16
[2016-12-20] MEDS ORDERED: IBUP-232 PO (07:21)
[2016-12-20] MEDS ORDERED: OXYC1TAB63 PO (07:21)
--- NOTE | 2016-12-20 07:22 | HHI.DCPOC ---
Discharge Care Plan Diagnosis: (1) Vaginal delivery Report Symptoms to Your Doctor -Temperate above 100.5 degrees -Redness, of incision or excessive or foul smelling drainage -Unusual pain or calf pain -Increased vaginal bleeding -Painful or difficulty urinating -Feelings of extreme sadness or anxiety after 2 weeks Goals to Promote Your Health * To prevent worsening of your condition and complications * To maintain your health at the optimal level Directions to Meet Your Goals Take your medications as prescribed Follow your dietary instruction Follow activity as directed Ensure plenty of rest for recovery Drink fluids for hydration Keep your appointments as scheduled Take your immunizations and boosters as scheduled If your symptoms worsen call your PCP, if no PCP go to Urgent Care Center or Emergency Room Smoking is Dangerous to Your Health. Avoid second hand smoke Call the 24-hour crisis hotline for domestic abuse at Lexii Oh MD R1 Dec 20, 2016 07:22
[2016-12-20 08:55] VITALS: BP 103/67; PULSE 49; RESP 18; TEMP 98.3
[2016-12-21 22:50] LABS: BATH SALTS (MDPV) UR NEG (NEG); ECSTASY (MDMA) UR NEG (NEG); GABAPENTIN UR NEG (NEG); HEROIN (6-ACETYLMORPHINE) UR NEG (NEG); HYDROMORPHONE U NEG (NEG); K2 SPICE UR NEG (NEG); OBMETHADONE UR NEG (NEG); OXYCODONE (PERCODAN) NEG (NEG); PHENCYCLIDINE URINE NEG (NEG)
== END 2016-12-20 15:49 | disposition home or self-care (01) | DRG 775 ==
LOC: HOBED 15:07 → H2EB 15:31 → H1EA 22:16
PROVIDERS: ADMIT Obstetrics & Gynecology Maternal & Fetal Medicine; ATTEND Obstetrics & Gynecology Maternal & Fetal Medicine
PROC: 10E0XZZ Delivery of Products of Conception, External Approach (ICD-10-PCS; principal; 2016-12-18)
PROC: 00HU33Z Insertion of Infusion Device into Spinal Canal, Percutaneous Approach (ICD-10-PCS; 2016-12-18)
PROC: 3E0R3CZ (ICD-10-PCS; 2016-12-18)
DX: O34.219 Maternal care for unspecified type scar from previous cesarean delivery (principal); O99.324 Drug use complicating childbirth; Z37.0 Single live birth; O99.824 Streptococcus B carrier state complicating childbirth; F17.210 Nicotine dependence, cigarettes, uncomplicated; O32.1XX0 Maternal care for breech presentation, not applicable or unspecified; O76 Abnormality in fetal heart rate and rhythm complicating labor and delivery; O99.334 Smoking (tobacco) complicating childbirth; F12.90 Cannabis use, unspecified, uncomplicated; Z3A.37 37 weeks gestation of pregnancy
CPT/HCPCS: 80307; 80348; 81001; 85025; 86850; 86900; 86901; 90715; 99285; G0480; G0481; J2405; J2540; J7120

== ENCOUNTER 2017-03-07 10:12 | Emergency (ER) | payer MEDICAID ==
[~2017-03-07] VITALS: Ht 167.6 cm; Wt 60.0 kg
[2017-03-07 10:13] VITALS: BP 132/75; PULSE 84; RESP 18; TEMP 98.8; O2SAT 97
--- NOTE | 2017-03-07 10:39 | PD ---
HPI Chief Complaint: Musculoskeletal Complaint Time Seen by Provider: 10:39 Travel History International Travel<30 days: No Contact w/Intl Traveler<30days: No Traveled to known affect area: No History of Present Illness HPI 32-year-old female presents to emergency department requesting reevaluation of her right hand fracture. She was seen last night at [facility] after injuring her hand while jumping into a pool. They did do an x-ray and told her was fractured and to follow-up with a hand surgeon. She does have an ulnar gutter splint in place. She is concerned because her right fifth finger has numbness and tingling which is unchanged since the injury. She showed me a picture that she had taken prior to the hand being splinted and the right fifth finger does appear deformed at the MCP joint. She to get a prescription for pain medications and has not filled them or taken them. She has elevated and ice the affected extremity with no change in symptoms. No known allergies. Has no other medical complaints. No other modifying factors or associated signs and symptoms. PFSH Past Medical History Autoimmune Disease: No Cardiovascular Problems: No Diminished Hearing: No Endocrine: No Gastrointestinal Disorders: No Genitourinary: No Headaches: Yes Musculoskeletal: No Respiratory: No ?: Not LMP: 02/07/17 : 7 Para: 5 Miscarriage: 1 : 0 Past Surgical History Section: Yes Gynecologic Surgery: Yes (LAPROSCOPY SURG, found endometriosis ) Other Surgery: No Social History Alcohol Use: No Tobacco Use: Yes Substance Use: No Allergies-Medications (Allergen,Severity, Reaction): Coded Allergies: No Known Allergies (Verified , 03/07/17) Reported Meds & Prescriptions Reported Meds & Active Scripts Active Ibuprofen 800 Mg Tab 800 Mg PO Q6HR PRN Prenate Dha 18-0.6-0.4-300 mg ( W/O A W/ Fe Asparto G) 1 Cap Cap 1 Tab PO DAILY Review of Systems Except as stated in HPI: all other systems reviewed are Neg Physical Exam Narrative GENERAL: Well-nourished, well-developed female patient, in no acute distress SKIN: Warm and dry. HEAD: Atraumatic. Normocephalic. EYES: Pupils equal and round. No scleral icterus. No injection or drainage. ENT: Mucosa pink and moist. Airway patent. NECK: Trachea midline. CARDIOVASCULAR: Regular rate. RESPIRATORY: No accessory muscle use. GASTROINTESTINAL: Flat. MUSCULOSKELETAL: Right hand with edema and ecchymosis to the fourth and fifth metacarpal region; no obvious deformity; right fifth finger with sensory intact and is pink and warm and with less than 3 second cap refill; no obvious deformity noted; all other fingers with sensory intact. Right upper extremity supple and non-tense with 2+ radial pulses and sensory intact. No obvious deformities. No clubbing. No cyanosis. NEUROLOGICAL: Awake and alert. Oriented 3. No obvious cranial nerve deficits. Motor grossly within normal limits. Normal speech. PSYCHIATRIC: Appropriate mood and affect; insight and judgment normal. Data Data Last Documented VS Vital Signs Date Time Temp Pulse Resp B/P Pulse Ox O2 Delivery O2 Flow Rate FiO2 03/07/17 10:13 98.8 84 18 132/75 97 Room Air Orders Hand, Complete ([id number]) (03/07/17 10:39) Ice/Cold Pack (03/07/17 10:39) Splint Or Brace Apply/Monitor (03/07/17 12:18) Sling Cradle Arm (03/07/17 ) Sling Cradle Arm (03/07/17 ) Fiberglass Splint Forearm Adul (03/07/17 ) MDM Medical Decision Making Medical Screen Exam Complete: Yes Emergency Medical Condition: Yes Medical Record Reviewed: Yes Differential Diagnosis Medical clearance, reevaluation, hand fracture, boxer's fracture Narrative Course 32-year-old female with right hand fracture and ulnar gutter splint in place. She was seen up her physician yesterday and wants her hand reevaluated secondary to not being able to move her right fifth finger and paresthesias of her fifth pinky finger. The patient showed me a picture of the hand after the injury and to the right fifth finger appears with deformity. Patient states that she was not told anything was dislocated and nothing was reduced if there was dislocation. Splint removed for reevaluation. Right hand x-ray ordered. 1221: Right hand x-ray concludes: Last 24 hours Impressions Hand X-Ray 03/07/17 1039 Signed Impressions: Service Date/Time: Tuesday, March 07, 2017 10:58 - CONCLUSION: Fracture distal fifth metacarpal with volar angulation. Darius Mora MD FACR Ulnar Gutter splint applied. Arm sling provided for support. Patient has prescriptions for pain medications. Ibuprofen prescribed for home. Instructed patient to follow up with Dr. Echevarria, or hand surgeon of choice. Information provided inpatient discharge instructions. Instructed patient to follow up with primary care provider. Patient verbalizes understanding and agreement with treatment plan. Patient is medically cleared and stable for discharge. Discussed reasons to return to the emergency department. Patient agrees with treatment plan. The patients vital signs are stable and the patient is stable for outpatient follow-up and treatment. Patient discharged home, stable and in no acute distress. Diagnosis Primary Impression: Hand fracture, right Qualified Code: S62.91XA - Hand fracture, right, closed, initial encounter Referrals: Richard Pierson MD Hand Surgeon Primary Care Physician Patient Instructions: General Instructions, Hand Fracture (ED) Additional Instructions: Tylenol or ibuprofen as directed and as needed to reduce pain Rest, ice, compress, and elevate extremity to decrease pain and inflammation Splint for support; do not remove splint until he follow-up with hand surgeon Avoid aggravating activity; increase activity as tolerated Follow-up with primary care provider Followup with Dr. Pierson, hand surgeon, or hand surgeon of choice 1-3 days Return to the emergency department immediately with worsening symptoms Med/Other Pt SpecificInfo: Prescription(s) given, No Change to Meds Scripts Ibuprofen 800 Mg Sfu003 Mg PO Q6HR PRN (PAIN) #30 TAB Ref 0 Prov:Lissa Scott 03/07/17 Disposition: 01 DISCHARGE HOME Condition: Stable Lissa Scott Mar 07, 2017 10:39
--- NOTE | 2017-03-07 11:30 | RADRPT ---
EXAM DATE/TIME: 03/07/2017 10:58 CORRECTION Corrected on: March 07, 2017; [facility] COMPARISON: No previous studies available for comparison. INDICATIONS : Right hand pain, hit on the pool yesterday. MEDICAL HISTORY : None. SURGICAL HISTORY : None. ENCOUNTER: Subsequent ACUITY: 1 day PAIN SCORE: 8/10 LOCATION: Right hand FINDINGS: There is fracture of the head of the fifth metacarpal with volar angulation. Alignment is anatomic. No other fractures are appreciated. CONCLUSION: Fracture distal fifth metacarpal with volar angulation. Darius Mora MD FACR on March 07, 2017 at 12:06 Board Certified Radiologist. This report was verified electronically.
[2017-03-07] MEDS ORDERED: IBUP800T23 PO ×2 (12:09→12:27)
== END 2017-03-07 12:58 | disposition home or self-care (01) ==
LOC: NEPK 10:12
DX: S62.91XA Unspecified fracture of right hand, initial encounter for closed fracture (principal); W16.512A Jumping or diving into swimming pool striking water surface causing other injury, initial encounter; Y93.89 Activity, other specified; Y92.838 Other recreation area as the place of occurrence of the external cause
CPT/HCPCS: 29125; 73130

== ENCOUNTER 2017-03-11 20:00 | Emergency (ER) | payer MEDICAID ==
[~2017-03-11] VITALS: Ht 167.6 cm; Wt 60.0 kg
[~2017-03-11 20:00] MED LIST changes: +IBUP800T23 PO
[2017-03-11 20:06] VITALS: TEMP 98.5
--- NOTE | 2017-03-11 20:32 | RADRPT ---
EXAM DATE/TIME: 03/11/2017 20:21 [facility] COMPARISON: No previous studies available for comparison. INDICATIONS : Fell backwards on ankle pain on posterior ankle. MEDICAL HISTORY : None. SURGICAL HISTORY : None. ENCOUNTER: Initial ACUITY: 1 day PAIN SCORE: 0/10 LOCATION: Left ankle FINDINGS: Three view exam was performed of the left ankle. The bony structures are in normal alignment. No ev idence of fracture, dislocation, or soft tissue swelling. The ankle mortise is intact. No radiopaqu e foreign bodies are seen. Bony mineralization is normal. CONCLUSION: Negative trauma study. Eber Puente MD on March 11, 2017 at 20:30 Board Certified Radiologist. This report was verified electronically.
--- NOTE | 2017-03-11 20:41 | PD ---
HPI Chief Complaint: Injury Time Seen by Provider: 20:37 Travel History International Travel<30 days: No Contact w/Intl Traveler<30days: No Traveled to known affect area: No History of Present Illness HPI 32-year-old white female presents to emergency department by EMS from [facility] for evaluation of left ankle pain after inversion injury. The patient states that she felt her knee pop in her ankle. She is currently being treated for a right hand fracture. This had occurred on the March. She was seen at [facility] then had a second opinion here at [facility] on the . She has not contacted the hand surgeon as of yet. She is taking hydrocodone for pain. She does admit to drinking alcohol earlier today. EMS gave the patient 6 mrd some morphine IV. She denies any other injuries. Pain is moderate. Worse with attempting to weight-bear. Some improvement of pain with morphine and elevation. She denies any numbness or tingling. No injury to her head, neck or back. [facility] Past Medical History Narrative Medical Right hand fracture Autoimmune Disease: No Cardiovascular Problems: No Diminished Hearing: No Endocrine: No Gastrointestinal Disorders: No Genitourinary: No Headaches: Yes Musculoskeletal: No Respiratory: No Tetanus Vaccination: < 5 Years ?: Not LMP: 03/11/17 : 7 Para: 5 Miscarriage: 1 : 0 Past Surgical History Section: Yes Gynecologic Surgery: Yes (LAPROSCOPY SURG, found endometriosis ) Other Surgery: No Social History Alcohol Use: Yes Tobacco Use: Yes (1/2) Substance Use: No Allergies-Medications (Allergen,Severity, Reaction): Coded Allergies: No Known Allergies (Verified , 03/07/17) Reported Meds & Prescriptions Reported Meds & Active Scripts Active Ibuprofen 800 Mg Tab 800 Mg PO Q6HR PRN Prenate Dha 18-0.6-0.4-300 mg ( W/O A W/ Fe Asparto G) 1 Cap Cap 1 Tab PO DAILY Review of Systems Except as stated in HPI: all other systems reviewed are Neg Physical Exam Narrative GENERAL: Well-developed, well-nourished in no apparent distress. Nontoxic appearing. HEAD: Normocephalic, atraumatic. EYES: Pupils equal round and reactive. Extraocular motions intact. No scleral icterus. No injection or drainage. ENT: Nose clear. Throat without erythema, tonsillar hypertrophy or exudate. Uvula midline. Airway patent. NECK: Trachea midline. Supple, nontender, moves head freely. No central bony tenderness or spasm. CARDIOVASCULAR: Regular rate and rhythm without murmurs, gallops, or rubs. RESPIRATORY: Clear to auscultation. Breath sounds equal bilaterally. No wheezes , rales, or rhonchi. GASTROINTESTINAL: Abdomen soft, non-tender, nondistended. No hepato-splenomegaly , or palpable masses. No guarding. EXTREMITIES: Patient has a ulnar gutter splint on the right hand. The left hand is unremarkable. The right lower extremity is unremarkable. The left lower extremity has a cardboard splint on. This is removed. The skin is intact. Patient has some mild swelling of the lateral ankle. She has tenderness to the anterior talar fibular ligament region. No pain in the medial malleolus. No tenderness in the posterior portion of the lateral malleolus. No pain in the Achilles or heel. Patient has tenderness to the proximal forefoot area and no distal forefoot and toe injury. She has good pulses and sensation. No injury to the knee or hip. BACK: Nontender without deformity. No flank tenderness. NEUROLOGICAL: Awake, alert and oriented x 3 .Cranial nerves grossly intact. Motor and sensory grossly within normal limits. Normal speech. Data Data Last Documented VS Vital Signs Date Time Temp Pulse Resp B/P Pulse Ox O2 Delivery O2 Flow Rate FiO2 03/11/17 20:06 98.5 Orders Ankle, Complete ([id number]) (03/11/17 20:09) Ice/Cold Pack (03/11/17 20:09) [facility] Medical Decision Making Medical Screen Exam Complete: Yes Emergency Medical Condition: Yes Medical Record Reviewed: Yes Interpretation(s) Left ankle: Negative for acute bony injury. Differential Diagnosis MDM: High Differential diagnoses: Fracture, sprain, strain, dislocation, contusion, neurovascular injury Narrative Course X-ray of the left ankles negative for bony injury. Patient's given Yoseph wrap and crutches. Patient is strongly recommended to call her orthopedic hand surgeon in the morning for an appointment. Patient may continue her home medications. Diagnosis Primary Impression: Left ankle sprain Qualified Code: S93.432A - Sprain of tibiofibular ligament of left ankle, initial encounter Patient Instructions: General Instructions Additional Instructions: Rest. Elevation. Ice packs for the next 3 days. Yoseph wrap and crutches. No weight-bearing and then progress to weight-bearing as tolerated. Continue home Medications as directed Follow-up with an orthopedist or your doctor in one week. Return to the ER if any problems Disposition: 01 DISCHARGE HOME Condition: Stable Burak Crouch Mar 11, 2017 20:41
== END 2017-03-11 21:21 | disposition home or self-care (01) ==
LOC: NEPD 20:00
DX: S93.432A Sprain of tibiofibular ligament of left ankle, initial encounter (principal); F17.200 Nicotine dependence, unspecified, uncomplicated; Z79.899 Other long term (current) drug therapy; X50.1XXA Overexertion from prolonged static or awkward postures, initial encounter
CPT/HCPCS: 73610; 99283; E0113